=== PATIENT | female | born 1995 | race Caucasian/White ===

== ENCOUNTER 2020-07-09 17:48 | Emergency (ER) | payer OTHER, SELFPAY ==
[2020-07-09 17:50] VITALS: BP 143/71; PULSE 72; RESP 18; TEMP 36.7; O2SAT 100; BMI 36.9
== END 2020-07-09 23:35 | disposition left against medical advice (07) ==
PROVIDERS: Emergency Provider Emergency Medicine
DX: O20.9 Hemorrhage in early pregnancy, unspecified (principal); Z3A.00 Weeks of gestation of pregnancy not specified
CPT/HCPCS: 99282; 99283

== ENCOUNTER 2020-07-10 06:19 | Emergency (ER) | payer OTHER, SELFPAY ==
[2020-07-10 07:02] VITALS: BP 122/73; PULSE 72; RESP 16; O2SAT 100; BMI 36.9
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
[2020-07-10 07:30] LABS: MANUAL DIFF FLAG NO
[2020-07-10 07:33] LABS: Basophils Percent Auto 0.3 % (0-2); Eosinophils Absolute Auto 0.1 X10*3/uL (0.0-0.4); Eosinophils Percent Auto 1.6 % (0-4); Hematocrit 39.7 % (37-47); Hemoglobin 12.5 g/dl (12.0-16.0); Imm Gran Abs Auto 0.02 X10*3/uL (0.00-0.03); Imm Gran Pct Auto 0.3 % (0.0-0.4); Lymphocytes Absolute Auto 1.6 X10*3/uL (1.2-4.9); Lymphocytes Percent Auto 26.2 % (20-40); Mean Corpuscular HGB Conc 31.5 g/dl (31.0-35.0); Mean Corpuscular Hemoglobin 28.2 pg (27.0-33.0); Mean Corpuscular Volume 89.6 fL (80-98); Mean Platelet Volume 11.2 fL (9.4-12.3); Monocytes Absolute Auto 0.5 X10*3/uL (0.1-1.2); Monocytes Percent Auto 8.3 % (2-11); Neutrophils Percent Auto 63.3 % (45-73); Platelet Count 235 X10*3/uL (160-400); Red Blood Count 4.43 X10*6/uL (4.20-5.50); Red Cell Distribution Width 13.9 % (11.0-16.0); White Blood Count 6.3 X10*3/uL (4.8-10.8)
[2020-07-10 07:37] LABS: Glucose Urine UA NEG (NEG); Leukocyte Esterase Urine NEG (NEG); Nitrite Urine NEG (NEG); PH 6.5 (5.0-8.0); Specific Gravity - Urine 1.025 (1.005-1.025); Urine Blood 3+ (NEG); Urine Ketones NEG (NEG); Urine Protein NEG (NEG-TRACE)
[2020-07-10] MEDS: 0.9 % Sodium Chloride 1,000 ML 999 ML IV (07:43)
[2020-07-10 07:45] LABS: Appearance Urine CLOUDY; Color Urine YELLOW
[2020-07-10 07:55] LABS: RBC Urine 50-75 /HPF (0); Squamous Epithelial Cell Urine 1+ /LPF; WBC Urine 0-2 /HPF (0-4)
[2020-07-10 07:55] LABS: Alanine Aminotransferase 11 U/L (0-31); Albumin Level 3.8 g/dL (3.5-5.0); Alkaline Phosphatase 44 U/L (39-117); Anion Gap 9 (12-20); Aspartate Amino Transferase 7 U/L (5-31); Bilirubin Total 0.2 mg/dL (0.0-1.0); Blood Urea Nitrogen 10 mg/dL (9-16); Calcium 8.2 mg/dL (8.4-10.2); Carbon Dioxide 26 mmol/L (22-29); Chloride 107 mmol/L (96-108); Creatinine Clr Calc Pharmacy 167.4; Estimated Glomerular Filt Rate > 60; Glucose Random 100 mg/dL (60-115); Lipase 15 U/L (8-78); Potassium 4.3 mmol/L (3.3-5.1); Sodium 138 mmol/L (135-145); Total Protein 6.4 g/dL (6.5-8.0)
[2020-07-10 07:57] LABS: Bacteria Urine TRACE /LPF
[2020-07-10 08:00] LABS: HCG Quantitative 114 mIU/mL
[2020-07-10 08:57] VITALS: BP 125/85; PULSE 67; RESP 16; O2SAT 100
--- NOTE | 2020-07-10 09:18 | PC.NURSE ---
PT ON STRETCHER, IV FLUIDS NEAR COMPLETION, PT AWAITING US , SHE IS AWARE OF LAB RESULTS OFFERS NO PAIN COMPLAINTS
--- NOTE | 2020-07-10 09:39 | PC.NURSE ---
PT STATES SHE DOES NOT WANT TO STAY FOR FURTHER DX TESTING AND WOULD LIKE TO BE DISCHARGED
[2020-07-10 11:34] LABS: CT PCR NOT DETECTED (Not Detect.); NG PCR NOT DETECTED (Not Detect.)
== END 2020-07-10 09:55 | disposition home or self-care (01) ==
PROVIDERS: Emergency Provider Emergency Medicine Emergency Medical Services
DX: O20.0 Threatened abortion (principal); Z3A.01 Less than 8 weeks gestation of pregnancy
CPT/HCPCS: 36415; 80053; 81001; 83690; 84702; 85025; 86900; 86901; 87491; 87591; 96360; 99283; 99284